=== PATIENT | male | born 1955 | race Two or more races ===

== ENCOUNTER → 2019-04-26 13:17 | Outpatient (CLI) | payer MEDICARE, SELFPAY ==
--- NOTE | 2019-04-26 13:26 | CT_ITS ---
PROCEDURE: CT TEMPORAL BONE WITHOUT CLINICAL HISTORY: ct of mastoid Hearing loss, mastoiditis COMPARISON: No exams were available for comparison TECHNIQUE: Axial images obtained with sagittal and coronal reformats. All CT scans at the facility use one or more dose reduction, viz: automated exposure control, ma/kV adjustment per patient size (including targeted exams where dose is matched to indication, i.e. head), or iterative reconstruction technique. FINDINGS: Mastoid air cells are normally aerated. The internal and external auditory canals and middle ear structures bilaterally having normal appearance. There is 2-3 millimeters of mucosal thickening along the anterior medial aspect of both maxillary sinuses. Paranasal sinuses are otherwise normally aerated. There is no air-fluid level. Nasal septum is relatively midline. Ostiomeatal complexes are patent. Left eve bullosa is noted. Multiple nonspecific nonenlarged lymph nodes are seen throughout the soft tissues of the neck bilaterally. Post inflammatory etiology is favored. Benign tonsillar calcifications are noted. IMPRESSION: Small amount of mucosal thickening in both maxillary sinuses consistent with minimal sinusitis. Normal appearance of bilateral ear structures and mastoid air cells. Dictated by: Mike Dietz 04/26/2019 14:38 Electronically signed by Mike Dietz in [place] 04/26/2019 14:38
== END ==
PROVIDERS: PCP Nurse Practitioner; Visit Provider Otolaryngology
DX: H70.13 Chronic mastoiditis, bilateral (principal)
CPT/HCPCS: 70480

== ENCOUNTER → 2021-04-19 09:08 | Outpatient (CLI) | payer MEDICARE, SELFPAY ==
--- NOTE | 2021-04-19 09:23 | US_ITS ---
FINAL REPORT CLINICAL HISTORY: HYPOTHYROIDISM FINDINGS: THYROID ULTRASOUND Sonographic images of the thyroid was obtained. The right lobe of the thyroid measures 2 x 4.7 x 2.2 cm. The left lobe of the thyroid measures 1.6 x 4.3 x 1.5 cm. The isthmus measures 2 mm. There is a lobular contour and a very heterogeneous echotexture. There is no convincing mass or nodule identified. IMPRESSION: Heterogeneous thyroid which can be seen with thyroiditis. Reviewed, Interpreted and Dictated by Kaleb Jerome III, MD Transcribed by Nia Johnson Authenticated by Kaleb Jerome III, MD on 04/19/2021 11:04:[address] [facility]
== END ==
PROVIDERS: Visit Provider Nurse Practitioner
DX: E03.9 Hypothyroidism, unspecified (principal)
CPT/HCPCS: 76536

== ENCOUNTER → 2022-01-21 14:28 | Outpatient (CLI) | payer MEDICARE, SELFPAY ==
--- NOTE | 2022-01-21 14:37 | CT_ITS ---
FINAL REPORT CLINICAL HISTORY: H/O NICOTINE DEPENDENCE, former smoker. He smoked 1 pack per day. He quit smoking 10 years ago. He smoked actively for 40 years. FINDINGS: Low-Dose Chest CT Axial images were obtained from the lung apex to the mid abdomen by computed tomography. Low-dose protocol was utilized. CTDI vol (mGy): 2.90 DLP (mGy-cm): 104.99 There is no axillary adenopathy. There is no hilar or mediastinal adenopathy. The heart is proper size. The ascending aorta measures up to 3.6 cm. There is no pericardial or pleural effusion. Lung window images demonstrate is mild changes of centrilobular emphysema. There is some linear scarring at the left apex. There is a small nodule in the periphery of the left lower lobe measuring 5 mm, well seen on image 55 of series 4. There are other smaller nodules measuring up to 4 mm seen on image 62 of series 4 and a pleural based 3 mm nodule seen on image 64 of series 4. Limited images of the upper abdomen demonstrate calcification in the body the pancreas. IMPRESSION: Multiple small nodules at the left base. S modifier: Calcification in the body of the pancreas concerning for sequela of chronic pancreatitis. Lung RADS category 2S. Recommend 12 month follow-up low-dose chest CT. Reviewed, Interpreted and Dictated by Nathan Carlin MD Transcribed by Nia Johnson Authenticated and . [facility]
== END ==
PROVIDERS: PCP Nurse Practitioner; Visit Provider Nurse Practitioner
DX: Z87.891 Personal history of nicotine dependence (principal); Z12.2 Encounter for screening for malignant neoplasm of respiratory organs
CPT/HCPCS: 71271

== ENCOUNTER → 2022-01-29 07:49 | Outpatient (CLI) | payer MEDICARE, SELFPAY ==
--- NOTE | 2022-01-29 08:10 | CT_ITS ---
FINAL REPORT TECHNIQUE: Pre- and postcontrast images of the abdomen were performed by computed tomography. This study was performed with technique to keep radiation doses as low as reasonably achievable. (ALARA). CLINICAL HISTORY: DISORDER OF PANCREAS FINDINGS: The lung bases are clear. There are multiple less than 1 cm hepatic cyst. There is a 14 mm mass in the inferior right hepatic lobe which shows peripheral contrast enhancement. It does not appear to be a cyst or typical hemangioma. Differentials include atypical hemangioma or other neoplasm. There is a gallstone in the gallbladder. The spleen is unremarkable. The adrenals are normal. Multiple small calcifications are seen within the pancreas consistent with pancreatitis. There is no pancreatic mass. The pancreatic duct is mildly ectatic measuring up to 3 mm. The kidneys enhance appropriately. The appendix appears normal. IMPRESSION: Mass in the inferior right hepatic lobe does not appear to be a cyst or typical hemangioma. Differentials include atypical hemangioma or other neoplasm. Follow-up abdominal CT or MRI in 3-6 months is recommended. Pancreatic calcifications consistent with chronic pancreatitis with mild ectasia of the pancreatic duct. No pancreatic mass identified. Reviewed, Interpreted and Dictated by Kaleb Jerome III, MD Transcribed by Jolene Dill Authenticated and [facility]
[2022-01-29 08:17] LABS: Blood Urea Nitrogen 22 mg/dl (9-20); Estimated Glomerular Filt Rate 74 ml/min (>60); GFR (African American) 90 ML/MIN (>60)
--- NOTE | 2022-01-29 09:19 | HMH.ITSTN ---
After injection of isovue 370 I noticed the patient's face started to turn red and he kept scratching his face. He said it started to feel itchy around his face. I alerted the PA, Rodrigue and she came to check on the patient. She instructed the patient stay for observation to see if redness and itchiness would get worse. We watch the patient for 30 mins and was feeling better. Redness went away and patient no longer felt itchy. Patient was released to go home and told if redness or itchy came back or had any questions to give us a call any time.
== END ==
PROVIDERS: PCP Nurse Practitioner; Visit Provider Nurse Practitioner
DX: K86.89 Other specified diseases of pancreas (principal)
CPT/HCPCS: 36415; 74170; 82565; 84520; Q9967

== ENCOUNTER 2024-07-05 11:00 | Outpatient (RCR) | payer MEDICARE, SELFPAY | END 2024-07-05 23:59 | disposition home or self-care (01) | LOC: PT 11:00 | PROVIDERS: Visit Provider Nurse Practitioner | DX: M25.561 Pain in right knee (principal) | CPT/HCPCS: 97110; 97163; 97530 ==

== ENCOUNTER 2024-12-16 10:43 | Outpatient (CLI) | payer MEDICARE, SELFPAY ==
--- NOTE | 2024-12-16 10:45 | US_ITS ---
FINAL REPORT CLINICAL HISTORY: ABNORMAL LEVELS FINDINGS: Sonographic images of the abdomen were obtained. There is mild fatty infiltration of the liver. The gallstone is proper size with no pericholecystic fluid or wall thickening. There is a gallstone in the gallbladder. There is no evidence of biliary ductal dilatation. The common hepatic duct measures 5 mm, which is within normal limits. Limited images of the pancreas are unremarkable. The spleen size is normal. The right kidney measures 11 cm in length. The left kidney measures 11 cm in length. There is normal renal echogenicity. There is no evidence of hydronephrosis. The aorta has an unremarkable appearance. Limited images of the inferior vena cava are unremarkable. IMPRESSION: Cholelithiasis. Reviewed, Interpreted and Dictated by Adalberto Parra MD Transcribed by Jolene Dill Authenticated and [facility]
--- OUTSIDE RECORDS SUMMARY | 2024-12-16 10:49 | XMS_ITS | Encounter Summary ---
Author Organization [employer] ([place], [place], [place], [place]) Address [address] [place] [address] Care Team Providers Care End Frazer Name Role Phone Kristin Elizondo APRN Primary Care Provider +1- [phone] Encounter Details Date Type Department Care Team (Late st Contact Info) Description 05/06/2022 Outside Orders [facility] Admitting [address] [place] [address] [facility], Provider Not In The System, [place] [address] Social History Tobacco Use Types Packs/Day Years Used Date Smoking Tobacco: Never Assessed Sex and Gender Information Value Date Recorded Sex Assigned at Male 09/10/2021 12:53 PM CDT Legal Sex Male 5:30 PM CDT Gender Identity Male 09/10/2021 12:53 PM CDT Sexual Orientation Not on file COVID-19 Exposure Response Date Recorded In the last 10 days, have yo u been in contact with someone who was confirmed or suspected to have Coronavirus/COVID-19? No / Unsure 05/09/2022 10:22 AM EST documented as of this encounter Plan of Treatment Not on file documented as of this encounter Visit Diagnoses Not on filedocumented in this encounter Care Teams End Frazer Relationship Specialty Start Date End Date Kristin Elizondo APRN [address] [facility] [address] [place] [address] PCP - General Family Medicine 05/06/22 documented as of this encounter
--- OUTSIDE RECORDS SUMMARY | 2024-12-16 10:49 | XMS_ITS | Encounter Summary ---
Author Organization [employer] ([place], [place], [place], [place]) Address [address] [place] [address] Care Team Providers Care Supervisor Coal Handling Name Role Phone Kristin Elizondo CAPO Primary Care Provider +1- [phone] Encounter Details Date Type Department Care Team (Late st Contact Info) Description 05/09/2022 Outside Orders [facility] Admitting [address] [place] [address] Ai Dupree NP [address] [facility] [address] [place] [address] Elevated ferritin (Primary Dx); Hypouricemia; Iron overload Social History Tobacco Use Types Packs/Day Years [...] on file documented as of this encounter Procedures Procedure Name Priority Date/Time Associated Diagnosis Comments THERAPEUTIC PHLEBOTOMY (CON BEANDRES) Routine 05/23/2022 11:46 AM EDT Elevated ferritin Iron overload THERAPEUTIC PHLEBOTOMY ([place] BEAKER) Routine 05/16/2022 11:08 AM EST Elevated ferritin Hypouricemia Iron overload THERAPEUTIC PHLEBOTOMY (CON DURAN) Routine 05/09/2022 11:21 AM EST Elevated ferritin documented in this encounter Results * Therapeutic Phlebotomy (05/23/2022 11:46 AM EDT) Therapeutic Phlebotomy See Comment 05/22/2022 8:00 PM EDT [facility] ([place]) Comment:Therapeutic Phleboto my: One unit with a volume of _450_ mLs removed. Patient tolerated the procedure without difficulty. Vital signs: Pre BP: _125/95_ Pre Pulse: _68_ Post BP: _110/91_ Post: Pulse _74_. Blood Venipuncture / Unknown 05/23/2022 11:46 AM EDT 05/24/2022 4:17 AM EDT us Provider Not In The System [facility] TEST ORDERABLES Final Result Performing Organization Address City/[facility]/ZIP Co de Phone Number [facility] ([place]) [address] [facility] [place] [address], [facility] [phone] * Therapeutic Phlebotomy (05/16/2022 11:08 AM EST) Pathologist [facility] Therapeutic Phlebotomy See Comment 05/15/2022 7:00 PM EST [facility] ([place] Comment:Therapeutic Phleboto my: One unit with a volume of _450_ mLs removed. Patient tolerated the procedure without difficulty. Vital signs: Pre BP: _133/96_ Pre Pulse: _68_ Post BP: _130/88_ Post: Pulse _77_. Blood Venipuncture / Unknown 05/16/2022 11:08 AM EST 05/16/2022 11:08 AM EST us Provider Not In The System [facility] TEST ORDERABLES Final Result [facility] ([place]) [address] [facility] [address] [phone] * Therapeutic Phlebotomy (05/09/2022 11:21 AM EST) Therapeutic Phlebotomy See Comment 05/13/2022 6:21 PM EST [facility] ([place] Comment:Therapeutic Phleboto my: One unit with a volume of _450_ mLs removed. Patient tolerated the procedure without difficulty. Vital signs: Pre BP: _146/102_ Pre Pulse: _73_ Post BP: _135/116_ Post: Pulse _85_. Blood Venipuncture / Unknown 05/09/2022 11:21 AM EST 05/09/2022 11:21 AM EST us Not In System Provider [facility] TEST ORDER MATT Final Result [facility] ([place]) [address] [phone] documented in this encounter Visit Diagnoses Diagnosis Elevated ferritin- Primary Other abnormal blood chemistry Hypouricemia Other abnormal blood chemistry Iron overload Disorders of iron metabolism documented in this encounter Care Teams Supervisor Coal Handling Relationship Specialty Start Date End Date Kristin Elziondo, CAR CHANGER [address] [facility] [address] [place] [address] PCP - General Family Medicine 05/06/22 documented as of this encounter
--- OUTSIDE RECORDS SUMMARY | 2024-12-16 10:49 | XMS_ITS | Encounter Summary ---
Author Organization [employer] ([place], [place], [place], [place]) Address [address] [place] [address] Care Team Providers Care Cytotechnologist/Cytology Supervisor Name Role Phone Kristin Elizondo CAPO Primary Care Provider +1- [phone] Encounter Details Date Type Department Care Team (Late st Contact Info) Description 05/06/2022 Outside Orders [facility] Admitting [address] [place] [address] Ai Dupree NP [address] [place] [phone] Liver lesion (Primary Dx) Social History Tobacco Use Types Packs/Day Years [...] Procedure Name Priority Date/Time Associated Diagnosis Comments HEMOCHROMATOSIS (HFE) 3 VARIANTS(SENDOUT) Routine 05/06/2022 1:16 PM EST Liver lesion documented in this encounter Results * Hemochromatosis (HFE) 3 Mutations(SENDOUT) (05/06/2022 1:16 PM EST) HFE PCR Specimen Whole Blood 023 11:22 PM EST [facility] 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 Homozygosity for this mutation accounts for 80-90 percent of the hemochromatosis patients of [place] descent. The frequency of this mutation in other populations is lower. H63D: Negative - This patient is negative for the HFE H63D mutation. S65C: Negative - This patient is negative for the HFE S65C mutation. This result has been reviewed and approved by Tianna Powers M.D., Ph.D. BACKGROUND INFORMATION: Hemochromatosis (HFE) 3 Mutations CHARACTERISTICS: Disorder of iron metabolism resulting in excessive iron storage leading to increased skin pigmentation, arthritis, hypogonadism, diabetes mellitus, heart arrhythmias/failure, cirrhosis and liver carcinoma. INCIDENCE: One in 300 individuals of [place] descent; unknown in other ethnicities. INHERITANCE: Autosomal recessive. PENETRANCE: 5 percent of C282Y homozygotes, 1 percent of C282Y/H63D compound heterozygotes and rare H63D homozygotes develop clinical symptoms. CAUSE: Two pathogenic HFE gene mutations on opposite chromosomes. MUTATIONS TESTED: p.C282Y (c.845G>A), p.H63D (c.187C>G), and p.S65C (c.193A>T). CLINICAL SENSITIVITY: 85 percent of hereditary hemochromatosis in Northern Europeans is caused by C282Y homozygosity and 5 percent by C282Y/H63D compound heterozygosity. METHODOLOGY: PCR and fluorescence monitoring. ANALYTICAL SENSITIVTY AND SPECIFICITY: 99 percent. LIMITATIONS: HFE mutations, other than those targeted, will not be detected. Diagnostic errors can occur due to rare sequence variations. This test was developed and its performance characteristics determined by [facility] [facility]. It has not been cleared or approved by the [place] Food and Drug Administration. This test was performed in a CLIA certified laboratory and is intended for clinical purposes. Counseling and informed consent are recommended for genetic testing. Consent forms are available online. Performed by [facility], [address] [place] [address] [email or web address], Paul Blankenship MD, PHD, Lab. Director Blood Venipuncture / Unknown 05/06/2022 1:16 PM EST 05/06/2022 1:16 PM EST us Not In System Provider LAB BLOOD ORDERABLES Mey l Result [facility] [address] [place] [place] [id number], [facility] [phone] documented in this encounter Visit Diagnoses Diagnosis Liver lesion- Primary Other specified disorders of liver documented in this encounter Care Teams Cytotechnologist/Cytology Supervisor Relationship Specialty Start Date End Date Kristin Elizondo, HR ASSOCIATE [address] [facility] [address] [place] [address] PCP - General Family Medicine 05/06/22 documented as of this encounter
--- OUTSIDE RECORDS SUMMARY | 2024-12-16 10:49 | XMS_ITS | Encounter Summary ---
Author Organization [employer] ([place], [place], [place], [place]) Address [address] [place] [address] Care Team Providers Care Director Of Cardiology Name Role Phone Kristin Elizondo CAPO Primary Care Provider +1- [phone] Encounter Details Date Type Department Care Team (Late st Contact Info) Description 05/30/2022 Outside Orders [facility] Admitting [address] [place] [address] Ai Dupree NP [address] [facility] [address] [place] [address] Hypouricemia (Primary Dx) Social History Tobacco Use Types [...] suspected to have Coronavirus/COVID-19? No / Unsure 05/16/2022 10:11 AM EST documented as of this encounter Plan of Treatment Not on file documented as of this encounter Results * Therapeutic Phlebotomy (05/30/2022 11:11 AM EDT) Therapeutic Phlebotomy See Comment 05/30/2022 10:14 AM EDT [facility] ([place]) Comment:Therapeutic Phleboto my: One unit with a volume of _450_ mLs removed. Patient tolerated the procedure without difficulty. Vital signs: Pre BP: _133/90_ Pre Pulse: _69_ Post BP: _126/87_ Post: Pulse _73_. Blood Venipuncture / Unknown 05/30/2022 11:11 AM EDT 05/30/2022 11:11 AM EDT us Provider Not In The System [facility] TEST ORDERABLES Final Result Performing Organization Address City/State/[facility] Co de Phone Number [facility] ([place]) [address] [place], [place] [address] [phone] documented in this encounter Visit Diagnoses Diagnosis Hypouricemia- Primary Other abnormal blood chemistry documented in this encounter Care Teams Director Of Cardiology Relationship Specialty Start Date End Date Kristin Elizondo, MANAGER BRANCH [address] [address] PCP - General Family Medicine 05/06/22 documented as of this encounter
--- OUTSIDE RECORDS SUMMARY | 2024-12-16 10:49 | XMS_ITS | Encounter Summary ---
Author Organization [employer] ([place], [place], [place], [place]) Address [address] [place] [address] Care Team Providers Care Office Clin Asst Name Role Phone Kristin Elizondo CAPO Primary Care Provider +1- [phone] Encounter Details Date Type Department Care Team (Late st Contact Info) Description 08/15/2022 Outside Orders [facility] Admitting [address] [place] [address] Ai Dupree NP [address] [place] [facility] [address] [place] [phone] Iron overload (Primary Dx); Elevated ferritin Social History Tobacco Use Types Packs/Day Years [...] suspected to have Coronavirus/COVID-19? No / Unsure 08/15/2022 10:03 AM EDT documented as of this encounter Plan of Treatment Not on file documented as of this encounter Results * Therapeutic Phlebotomy (08/15/2022 10:42 AM EDT) Therapeutic Phlebotomy See Comment 08/18/2022 1:13 PM EDT [facility] ([place]) Comment:Therapeutic Phleboto my: One unit with a volume of _450_ mLs removed. Patient tolerated the procedure without difficulty. Vital signs: Pre BP: _137/90_ Pre Pulse: _95_ Post BP: _127/83_ Post: Pulse _66_. Blood Venipuncture / Unknown 08/15/2022 10:42 AM EDT 08/18/2022 1:05 PM EDT us Not In System Provider [facility] TEST ORDER MATT Final Result [facility] ([place]) [address] [place], [place] [address] [phone] documented in this encounter Visit Diagnoses Diagnosis Iron overload- Primary Disorders of iron metabolism Elevated ferritin Other abnormal blood chemistry documented in this encounter Care Teams Office Clin Asst Relationship Specialty Start Date End Date Kristin Elizondo, CRUDE OIL TREATER [address] [facility] [address] [place] [phone] PCP - General Family Medicine 05/06/22 documented as of this encounter
--- OUTSIDE RECORDS SUMMARY | 2024-12-16 10:49 | XMS_ITS | Encounter Summary ---
Author Organization [employer] ([place], [place], [place], [place]) Address [address] [place] [address] Care Team Providers Care Storm Window Installer Name Role Phone Kristin Elizondo APRN Primary Care Provider +1- [phone] Encounter Details Date Type Department Care Team (Late st Contact Info) Description 07/11/2022 Outside Orders [facility] Admitting [address] [place] [address] Ai Dupree NP [address] [facility] [address] [place] [address] Social History Tobacco Use Types Packs/Day Years [...] suspected to have Coronavirus/COVID-19? No / Unsure 07/11/2022 10:01 AM EDT documented as of this encounter Plan of Treatment Not on file documented as of this encounter Visit Diagnoses Not on filedocumented in this encounter Care Teams Storm Window Installer Relationship Specialty Start Date End Date Kristin Elizondo APRN [address] [facility] [address] [place] [address] PCP - General Family Medicine 05/06/22 documented as of this encounter
--- OUTSIDE RECORDS SUMMARY | 2024-12-16 10:50 | XMS_ITS | Clinical Summary ---
Author Organization Healthcare Address [address] [id number] Care Team Providers Care Silverware Assembler Name Role Phone Kristin Elizondo APRN Primary Care Provider Allergies Active Allergy Reactions Criticality Noted Date Comments Iodinated Contrast Media Other - please document in the comment field Low 01/29/2022 Redness of Skin Sulfa Drugs Other - please document in the comment field Medium 05/16/2019 Sulfacetamide Unknown - Patient states they do not know rxn details Low 12/31/2017 Medications atorvastatin (Lipitor) 40 MG tablet Take 1 tablet (40 mg) by mouth 1 (one) time each day. 2 Active levothyroxine (Synthroid, Levoxyl) 125 MCG tablet Take 1 tablet (125 mcg) by mouth 1 (one) time each day. 2 Active meloxicam (Mobic) 15 MG tablet meloxicam 15 mg tablet TAKE ONE TABLET BY MOUTH DAILY WITH FOOD Active lisinopril-hydr oCHLOROthiazide 10-12.5 MG tablet Take 1 tablet by mouth Daily. 5 Active Active Problems No known active problems Family History Medical History Relation Name Comments Diabetes Brother Other cancer Father Relation Name Status Comments Brother Father Social History Tobacco Use Types Packs/Day Years Used Date Smoking Tobacco: Former Cigarettes Q uit: 2011 Passive Smoke Exposure: Past Smokeless Tobacco: Never Tobacco Cessation:Counseling Given: Not Answered Alcohol Use Standard Drinks/Week Comments Not Currently 0 (1 standard drink = 0.6 oz pur e alcohol) PHQ-2 Answer Date Recorded Patient Health Questionnaire-2 Score 0 08/03/2024 PHQ-9 Answer Date Recorded Patient Health Questionnaire-9 Score 1 08/03/2024 PHQ-2A Answer Date Recorded Patient Health Questionnaire-2 Score 0 01/07/2023 Sex and Gender Information Value Date Recorded Sex Assigned at Not on file Legal Sex Male 8:33 PM EDT Gender Identity Not on file Sexual Orientation Not on file Last Filed Vital Signs Vital Sign Reading Time Taken Comments Blood Pressure 117/80 08/03/2024 2:06 PM EDT Pulse 90 08/03/2024 2:06 PM EDT Temperature 36.5 C (97.7 F) 08/03/2024 2:06 PM EDT Respiratory Rate 16 07/06/2018 10:22 AM EDT Oxygen Saturation 96% 08/03/2024 2:06 PM EDT Inhaled Oxygen Concentration - - Weight 96.7 kg (213 lb 3 oz) 08/03/2024 2:06 PM EDT Height 185.4 cm (6' 1 ) 08/03/2024 2:06 PM EDT Body Mass Index 28.13 08/03/2024 2:06 PM EDT Plan of Treatment Upcoming Encounters Date Type Department Care Team (Late st Contact Info) Description 02/07/2025 8:30 AM EST Office Visit [facility] [address] [place] [address] Chang Dee PA [address] [place] [address] 02/07/2025 9:00 AM EST Ancillary Procedure [facility] [address] [place] [address] Health Maintenance Due Date Last Done Comments [facility]-Medicare Annual Wellness (AWV) 1954 [facility]-/Child/Adol SDOH Screenings 1954 [id number] Vaccine (#1) 1959 [facility]- SDOH Screenings 01/09/1972 [facility]-Adult SDOH Screenings 01/09/1972 [facility]-DTaP,Tdap,and Td Vaccines (1 - Tdap) 1973 [facility]-Hepatitis A Vaccines (1 of 2 - Risk 2-dose series) 1973 CT Colonography 1999 Colonoscopy 1999 FIT-DNA 1999 FIT 1999 FOBT 1999 Sigmoidoscopy 1999 [facility]-Colorectal Cancer Screening 1999 [facility]-Pneumococcal Vaccine: 50+ Years (1 of 1 - PCV) 01/09/2004 [facility]-Zoster Vaccines (1 of 2) 01/09/2004 [facility]-RSV Vaccine: 60+ Years or (1 - Risk 60-74 years 1-dose series) 2014 [facility]-Abdominal Aortic Aneurysm (AAA) Screening 2019 [facility]-Influenza Vaccine (#1) 2024 [facility]-Depression Screening 08/03/2025 08/03/2024, 07/08 [facility]-Hepatitis C Screening Completed 2022, 04/07/2022, 04/07/2022 [facility]-Obesity Intervention Completed 025, 2024, 07/08/2023, Additional history exists HPV Vaccines Aged Out No longer eligi ble based on patient's age to complete this topic [facility]-HIB Vaccines Aged Out No longer e ligible based on patient's age to complete this topic [facility]-IPV Vaccines Aged Out No longer e ligible based on patient's age to complete this topic [facility]-Rotavirus Vaccines Aged Out No lo nger eligible based on patient's age to complete this topic Procedures Procedure Name Priority Date/Time Associated Diagnosis Comments HEPATITIS C VIRUS (HCV) QUANTITATIVE PCR Routine 01/07/2023 11:48 AM EDT Hereditary hemochromatosis (CMS/HCC) from Last 3 Months or Most Recently Relevant to Health Maintenance Results * Hepatitis C Virus (HCV) Quantitative PCR (01/07/2023 11:48 AM EDT) Hepatitis C Virus (HCV) Quantitative Interpretation Not Detected Not Detected . 01/09/2023 8:22 AM EDT [facility] Hepatitis C Virus (HCV) Quantitative Viral Load Log Result <1.08 <1.08 log10 IU/mL 01/09/2023 8:22 AM EDT [facility] Hepatitis C Virus (HCV) Quantitative IU/mL Result <12 <12 IU/mL 01/09/2023 8:22 AM EDT [facility] Blood Venous blood specimen / Unknown Venipuncture / Unknown 01/07/2023 11:48 AM EDT 01/07/2023 11:49 AM EDT Narrative [facility] - 01/09/2023 8:22 AM EDT The G[employer] M2000 HCV test is a Real Time in vitro nucleic acid amplification test for the quantitation of Hepatitis C Viral (HCV) RNA in human serum in HCV-infected individuals. It is intended for use as an aid in the management of HCV-infected individuals undergoing anti-viral therapy. The dynamic range for this test is log10 = 1.08 to 8.00 and/or 12 to 100,000,000 IU/mL. The limit of detection (LOD) for this assay is 12 IU/mL and the limit of quantitation (LOQ) is 12 IU/mL. This assay is FDA approved for clinical use. Ai Dupree APRN LAB BLOOD ORDERABLES Final Result Performing Organization Address City/State/[facility] Co de Phone Number [facility] [address] [place] [address] from Last 3 Months or Most Recently Relevant to Health Maintenance Insurance Care Teams Silverware Assembler Relationship Specialty Start Date End Date Kristin Elizondo APRN [address] [place] [address] PCP - General 02/10/22
--- OUTSIDE RECORDS SUMMARY | 2024-12-16 10:50 | XMS_ITS | Referral Summary ---
Author Organization [employer] ([place], [place], [place], [place]) Address [address] [place] [address] Care Team Providers Care Producer Arborist Manager Name Role Phone MikhailKristin Frannie SCANLON Primary Care Provider [phone]- [phone] Social History Tobacco Use Types Packs/Day Years Used Date Smoking Tobacco: Never Assessed Food Insecurity Answer Date Recorded Food run out past 12 months Not on file 03/09 Food did not last past 12 months Not on file 03/20/2023 Employment Answer Date Recorded Help finding and keeping a job Not on file 0 03/20/2023 Family and Community Support Answer John e Recorded Help with Day to Day Activities Not on file 03/20/2023 Feeling Lonely or Isolated Not on file 03/20 Educational Attainment Answer Date Raghu rded Speak language other than Greek at home Not on file 03/20/2023 Want help with school or training Not on file 03/20/2023 Substance Use Answer Date Recorded Used prescription meds for non-medical reasons N ot on file 03/20/2023 Used illegal drugs past 12 months Not on file 03/20/2023 Sex and Gender Information Value Date Recorded Sex Assigned at Male 09/10/2021 12:53 PM CDT Legal Sex Male 5:30 PM CDT Gender Identity Male 09/10/2021 12:53 PM CDT Sexual Orientation Not on file Plan of Treatment Not on file Insurance MEDICAID [employer] MEDICARE HMO Care Teams Producer Arborist Manager Relationship Specialty Start Date End Date Kristin Elizondo, RADIOCHEMICAL TECHNICIAN [address] [address] PCP - General Family Medicine 05/06/22
--- OUTSIDE RECORDS SUMMARY | 2024-12-16 10:50 | XMS_ITS | Clinical Summary ---
Author Organization [employer] ([place], [place], [place], [place]) Address [address] [place] [address] Care Team Providers Care Ramp Agent Name Role Phone Kristin Elizondo CAPO Primary Care Provider [phone]- [phone] Social History Tobacco Use Types Packs/Day Years [...] Date Raghu rded Speak language other than [place] at home Not on file 03/20/2023 Want [...] Orientation Not on file Plan of Treatment Health Maintenance Due Date Last Done Comments Medicare Initial AWV [id number] CT Colonography 1954 Colonoscopy 1954 Colorectal Cancer Screening 1954 FOBT/FIT 1954 Fit-DNA (Cologuard) 1954 Sigmoidoscopy 1954 Depression Screening (12+) 1966 Tobacco Cessation Counseling and Screening (12+) 01/08 Hepatitis C Screening 01/09/1972 DTAP/TDAP/TD VACCINES (1 - Tdap) 1973 Pneumococcal 50+ years (1 of 1 - PCV) 01/09/2004 Shingles Vaccine (Zoster) (1 of 2) 01/09/2004 Respiratory Syncytial Virus (RSV) Adult or (1 - Risk 60-74 years 1-dose series) 2014 Falls Risk Screening 03/09/2024 COVID-19 VACCINE (1 - 2023- season) 2024 Influenza Vaccine (#1) 2024 Insurance [id number] (Home) [facility] [address] MEDICAID [facility] MEDICARE HMO Care Teams Ramp Agent Relationship Specialty Start Date End Date Kristin Elizondo, CHINCHILLA FARMER [address] [address] PCP - General Family Medicine 05/06/22
--- OUTSIDE RECORDS SUMMARY | 2024-12-16 10:50 | XMS_ITS | Encounter Summary ---
Author Organization [facility] ([place], [place], [place], [place]) Address [address] [place] [address] Care Team Providers Care Human Resources Compensation Analyst Name Role Phone Kristin Elizondo CAPO Primary Care Provider [phone]- [phone] Encounter Details Date Type Department Care Team (Late st Contact Info) Description 11/11/2023 Outside Orders [facility] Admitting [address] [place] [address] Ai Dupree NP [address] [facility] [address] [phone] Elevated ferritin (Primary Dx) Social History Tobacco Use Types [...] Date Raghu rded Speak language other than Swazi at home Not on file 03/20/2023 Want [...] PM CDT Sexual Orientation Not on file documented as of this encounter Plan of Treatment Scheduled Orders Name Type Priority Associated Diagnoses Orde r Schedule Therapeutic Phlebotomy Blood Bank Routine Elevated ferritin Expected: 11/11/2023, Expires: 11/10/2024 documented as of this encounter Results * Ferritin (11/11/2023 12:24 PM EDT) Ferritin 38.00 8.00 - 388.00 ng/mL 11/11/2023 1:07 PM EDT [facility] Blood Venipuncture / Unknown 11/11/2023 12:24 PM EDT 11/11/2023 12:26 PM EDT us Ai Dupree MIXED [employer] FARMER LAB BLOOD ORDERABLES Final Res ult [facility] [address] [phone] documented in this encounter Visit Diagnoses Diagnosis Elevated ferritin- Primary Other abnormal blood chemistry documented in this encounter Care Teams Human Resources Compensation Analyst Relationship Specialty Start Date End Date Kristin Elizondo, FLOOR HAND [address] [facility] [address] [place] [id number] PCP - General Family Medicine 05/06/22 documented as of this encounter
== END 2024-12-16 23:59 | disposition home or self-care (01) ==
LOC: RAD 10:44
PROVIDERS: PCP Nurse Practitioner; Visit Provider Nurse Practitioner
DX: K80.20 Calculus of gallbladder without cholecystitis without obstruction (principal); R74.8 Abnormal levels of other serum enzymes
CPT/HCPCS: 76700